=== PATIENT | male | born 1945 | race Caucasian/White ===

== ENCOUNTER 2020-09-08 07:14 | Day surgery (SDC) | payer OTHER ==
[2020-09-05 10:04] LABS: Absolute Lymphocytes (CBC) 1.6 K/uL (0.7-4.9); Basophils % 0.5 % (0-1.3); Lymphocytes % 24.1 % (15.3-44.8); MPV 8.3 fL (7.6-11.3); RBC Red Blood Cell Count 4.24 M/uL (4.33-5.43)
[2020-09-05 10:14] LABS: Potassium 4.6 mmol/L (3.5-5.1)
[2020-09-05 10:40] LABS: Protime INR 0.91
--- NOTE | 2020-09-05 11:05 | RAD REPORT ---
EXAM DESCRIPTION: August Gomez And Christoph (2 Views)09/05/2020 10:03 am CLINICAL HISTORY: Preop for coronary catheterization COMPARISON: 2016 FINDINGS: Bilateral calcified pleural plaques unchanged. Lungs appear clear of acute infiltrate. Lungs are mildly hyperaerated. Heart is normal size IMPRESSION: No acute abnormality is displayed
[2020-09-08] MEDS ORDERED: NA CHLORIDE 0.9% 500 ML ONE (08:11)
[2020-09-08] MEDS ORDERED: FENTANYL CITR 100 MCG/2 ML ONE (08:14)
[2020-09-08] MEDS ORDERED: MIDAZOLAM HCL 2 MG/2 ML INJ ONE ×2 (08:14→08:47)
[2020-09-08] MEDS ORDERED: ATROPINE SULF 1 MG/10 ML SYR IV ONE (08:15)
[2020-09-08] MEDS ORDERED: NA CHLORIDE 0.9% 0 ML ONE (08:15)
[2020-09-08] MEDS ORDERED: NITROGLYCERIN 100 MCG/ML SYR (for cath lab use only) IV ONE (08:15)
[2020-09-08] MEDS ORDERED: HEPA 1000U/500MLS 1,000 UNIT/500 ML BAG IV ONE (08:15)
[2020-09-08] MEDS ORDERED: NITROGLYCERIN/D5W 0 MG/0 ML BTL IV ONE (08:15)
--- NOTE | 2020-09-08 10:15 | OP ---
Surgeon: Renny Stephen MD Senior [employer] Specialist: Mr. Fran Mitchell. Procedure Performed: Admitted as an outpatient on 09/08/2020 for left heart catheterization, selecti ve coronary arteriogram, left ventriculogram. Indication: CAD, aortic stenosis, chest pain, abnormal stress test. Procedure In Detail: Mr. Gilmore was prepped and draped in the routine sterile fashion. Given Versed and fentanyl for sedation. A 6-[place] sheath introduced in the right common femoral artery successfu lly. Angiography there was normal. Angio-Seal was used to close the case. Jamse catheter left an d right were used to the coronary artery. He had a dominant RCA, which was normal. His circumflex w as normal. It was nondominant. His LAD had a 40% proximal and 40% mid LAD stenosis with some mild d iagonal disease as well. The patient was hypertensive throughout the procedure. A pigtail catheter was introduced and a very calcified aortic valve was found to have a 20 mm gradient consistent with m ild aortic stenosis. His end-diastolic pressure was 8 mmHg in the left ventricle. His ejection frac tion was 65% to 69%. The patient did not have any complication. He tolerated the procedure well. Postoperative Diagnoses: Mild aortic stenosis, moderate coronary artery disease. Estimated Blood Loss: 5 mL. Anesthesia: Total conscious sedation 45 minutes. Plan: For medical therapy. Increase statin dose, put him on aspirin. Consider low-dose beta-blocke r. The patient will remain in the hospital for 2 hours after bedrest and I will see him in the office in 2 weeks. GORGE/KEELYL Voice ID: [id number] Report ID: [id number]
[2020-09-08 10:28] VITALS: BP 173/56; TEMP 97.1; O2SAT 96
== END 2020-09-08 10:50 | disposition home or self-care (01) ==
LOC: CCL 07:14
DX: I25.10 Atherosclerotic heart disease of native coronary artery without angina pectoris (principal); I35.0 Nonrheumatic aortic (valve) stenosis; I10 Essential (primary) hypertension
CPT/HCPCS: 85025; 80048; 36415; 85610; 85730; 71046; 93458; C1893; C1760; J2250 ×2; J3010; J7040; J1644; J0583

== ENCOUNTER 2023-03-22 08:43 | Day surgery (SDC) | payer OTHER ==
--- NOTE | 2023-03-21 10:41 | RAD REPORT ---
EXAM DESCRIPTION: [facility] (2 Views)03/21/2023 10:29 am CLINICAL HISTORY: PREPROCEDURE SCREENING. Hypertension COMPARISON: Chest Pa And Lat (2 Views) dated 09/05/2020; Chest Pa And Lat (2 Views) dated 01/02/2016; CHEST PA AND LAT 2 VIEW dated 01/27/2015; CHEST SINGLE VIEW dated 05/24/2014 TECHNIQUE: Portable AP view of the chest. FINDINGS: The lungs are clear. Stable burden of calcific plaque. No pneumothorax or effusion. The ca rdiomediastinal contours are unremarkable. IMPRESSION: No acute cardiopulmonary process.
[2023-03-21 10:45] LABS: Absolute Lymphocytes (CBC) 1.6 K/uL (0.7-4.9); Hematocrit 36.2 % (39.6-49.0); Lymphocytes % 25.6 % (15.3-44.8); MPV 8.3 fL (7.6-11.3); Platelets 223 thou/uL (152-406); RBC Red Blood Cell Count 3.89 M/uL (4.33-5.43)
[2023-03-21 11:12] LABS: Potassium 4.4 mEq/L (3.5-5.1); Protime INR 0.94
--- NOTE | 2023-03-21 13:32 | EKG ---
Test Date: 2023-03-21 Test Time: 11:14:30 Reeling Operator: MILEY MEASUREMENT RESULTS: Intervals: Rate: 51 NV: 170 QRSD: 130 QT: 442 QTc: 407 [place]: P: 61 NV: 170 QRS: -10 T: 20 INTERPRETIVE STATEMENTS: Sinus bradycardia Nonspecific intraventricular block Abnormal ECG Compared to ECG 01/02/2016 10:48:42 Sinus rhythm no longer present Left-axis deviation no longer present Left ventricular hypertrophy no longer present Electronically Signed On 03-21-23 13:31:53 TICKET PRINTER by Dillon Santana
[2023-03-22] MEDS ORDERED: NA CHLORIDE 0.9% 500 ML ONE (09:09)
[2023-03-22] MEDS ORDERED: LIDOCAINE 1% 20 ML MDV ONE (10:11)
[2023-03-22] MEDS ORDERED: FENTANYL CITR 100 MCG/2 ML ONE (10:11)
[2023-03-22] MEDS ORDERED: VERAPAMIL HCL 10 MG/4 ML VIAL IV ONE (10:11)
[2023-03-22] MEDS ORDERED: HEPA 1000U/500MLS 1,000 UNIT/500 ML BAG IV ONE (10:11)
[2023-03-22] MEDS ORDERED: MIDAZOLAM HCL 2 MG/2 ML INJ ONE (10:12)
[2023-03-22] MEDS ORDERED: HEPARIN 5000 UNIT/ML 1 ML VIAL ONE (10:12)
[2023-03-22] MEDS ORDERED: TICAGRELOR 90 MG TABLET PO ONE (10:12)
[2023-03-22] MEDS ORDERED: ATROPINE SULF 1 MG/10 ML SYR IV ONE (10:12)
[2023-03-22] MEDS ORDERED: HEPARIN 10,000 UNIT/10 ML VIAL IV ONE (10:13)
[2023-03-22] MEDS ORDERED: CLOPIDOGREL 75 MG TABLET ONE (10:13)
[2023-03-22] MEDS ORDERED: ASPIRIN 325 MG TAB ONE (10:13)
[2023-03-22] MEDS ORDERED: NITROGLYCERIN/D5W 25 MG/250 ML BTL IV ONE (10:25)
[2023-03-22] MEDS ORDERED: REGADENOSON 0.4 MG/5 ML SYR IV ONE (11:11)
[2023-03-22 14:23] VITALS: BP 140/48; O2SAT 100
--- NOTE | 2023-03-22 18:47 | OP ---
Date of Procedure: 03/22/2023 Surgeon: HOWARD BELLO Procedure Performed: 1.Coronary angiogram. 2.FFR of mid LAD moderate stenosis and significant value of 0.87. Indication: Aortic valve stenosis. Access: Right radial artery 6-[place], closed with TR band. Complications: None. Bleeding: Less than 20 mL. Anesthesia: Total sedation time was 50 minutes. I used fentanyl and Versed. Description Of Procedure: After risks, benefits, alternatives were explained, the patient agreed to proceed and signed informed consent. The patient was brought into cardiac catheterization laboratory , prepped and draped in usual sterile fashion. Then, I accessed right radial artery using pediatric micropuncture kit, placed 6-[place] slender sheath and took 5-[place] 4 catheter into the aortic root, engaged left main and took standard views and then the RCA, took standard views, then exchanged for 6-[place] EBU 3 guide and engaged the left main and gave systemic heparin to assure ACT level abo ve 250 and took FFR PressureWire into the aortic root, pressures were equalized, and then the wire wa s advanced past the area of mid LAD stenosis and FFR was obtained using the scan, it was 0.87, signif icant, and then pullback showed no drift. Final angiogram after pulling the wire was satisfactory an d removed the guide and sheath. Placed TR band with good hemostasis. Findings: 1.Left main: Large and normal. 2.LAD: Ostial to proximal 40% to 50% stenosis, mid 50% stenosis, negative FFR of 0.87. Rest of the LAD is normal. Normal diagonal branches. 3.Left circumflex is normal. Normal OM branch. 4.RCA has ostial 80% stenosis, heavily calcified. Conclusion: 1.Severe ostial RCA stenosis, heavily calcified. 2.Moderate coronary artery disease elsewhere. Recommendation: 1.PCI of ostial RCA with shockwave at [place]. 2.To proceed with TAVR after PCI of RCA. SR/MODL Voice ID: [id number] Report ID: [id number]
== END 2023-03-22 14:27 | disposition home or self-care (01) ==
LOC: CCL 08:43
PROVIDERS: ATTEND Internal Medicine
DX: I35.0 Nonrheumatic aortic (valve) stenosis (principal); I25.10 Atherosclerotic heart disease of native coronary artery without angina pectoris; I34.0 Nonrheumatic mitral (valve) insufficiency; I65.23 Occlusion and stenosis of bilateral carotid arteries; I10 Essential (primary) hypertension; E78.5 Hyperlipidemia, unspecified; Z79.82 Long term (current) use of aspirin; Z79.899 Other long term (current) drug therapy; Z82.3 Family history of stroke
CPT/HCPCS: 93005; 85025; 80048; 36415; 85610; 85730; 71046; 93454; 76937; 93571; C1893; Q9966; J1644; J2785; J2001; J2250; J3010; J7040; C1769; 99152; 99153; J0461

== ENCOUNTER 2024-02-13 11:30 | Day surgery (SDC) | payer OTHER ==
[2024-02-10 14:15] LABS: Absolute Eosinophils 0.5 K/uL (0-0.5); Absolute Lymphocytes (CBC) 1.3 K/uL (0.7-4.9); Absolute Monocytes 0.7 K/uL (0.1-1.3); Absolute Neutrophil 4.3 K/uL (1.8-8.0); Basophils % 0.7 % (0-1.3); Eosinophils % 7.1 % (0-4.4); Hematocrit 36.9 % (39.6-49.0); Hemoglobin 12.3 g/dL (13.6-17.9); Lymphocytes % 19.3 % (15.3-44.8); MCH 31.1 pg (27.0-35.0); MCHC 33.4 g/dL (32.0-36.0); MCV 92.9 fL (80-100); MPV 8.4 fL (7.6-11.3); Monocytes % 10.4 % (3.3-12.3); Neutrophils % 62.5 % (41.7-73.7); Nucleated Red Blood Cells % 0.1 % (0-0); Platelets 230 thou/uL (152-406); RBC Red Blood Cell Count 3.98 M/uL (4.33-5.43); Red Cell Distribution Width 14.4 % (12.1-15.2)
[2024-02-10 14:22] LABS: PT Prothrombin Time 11.1 SECONDS (9.4-12.5); PTT, Activated Partial Thromb 30.1 SECONDS (24.3-36.9); Protime INR 0.99
--- NOTE | 2024-02-10 14:27 | RAD REPORT ---
Procedure: Chest Pa And Lat (2 Views) HISTORY: Preop for cardiac catheterization COMPARISON: March 2023 FINDINGS: The lungs appear clear of acute infiltrate. No significant pleural effusion noted. Calcified pleural plaques unchanged. Aortic stent present. The heart is mildly enlarged.. IMPRESSION: No acute abnormality is displayed.
[2024-02-13] MEDS ORDERED: NA CHLORIDE 0.9% 500 ML ONE (11:36)
[2024-02-13] MEDS ORDERED: HEPA 1000U/500MLS 2,000 UNIT/1,000 ML BAG IV ONE (12:09)
[2024-02-13] MEDS ORDERED: HEPARIN 10,000 UNIT/10 ML VIAL IV ONE (12:09)
[2024-02-13] MEDS ORDERED: LIDOCAINE 1% 20 ML MDV ONE (12:09)
[2024-02-13] MEDS ORDERED: CLOPIDOGREL 75 MG TABLET ONE (12:10)
[2024-02-13] MEDS ORDERED: MIDAZOLAM HCL 2 MG/2 ML INJ ONE (12:10)
[2024-02-13] MEDS ORDERED: VERAPAMIL HCL 10 MG/4 ML VIAL IV ONE (12:10)
[2024-02-13] MEDS ORDERED: ATROPINE SULF 1 MG/10 ML SYR IV ONE (12:10)
[2024-02-13] MEDS ORDERED: TICAGRELOR 90 MG TABLET PO ONE (12:11)
[2024-02-13] MEDS ORDERED: ASPIRIN 325 MG TAB ONE (12:11)
[2024-02-13] MEDS ORDERED: HEPARIN 5000 UNIT/ML 1 ML VIAL ONE (12:11)
[2024-02-13] MEDS ORDERED: FENTANYL CITR 100 MCG/2 ML ONE (12:11)
[2024-02-13] MEDS ORDERED: METOPROLOL XL 25 MG TAB PO ONE (13:30)
[2024-02-13 15:38] VITALS: BP 127/56; O2SAT 99
--- NOTE | 2024-02-13 20:49 | OP ---
Date of Procedure: 02/13/2024 Surgeon: HOWARD BELLO Procedures Performed: 1.Selective coronary angiogram. 2.Left heart catheterization. Indication: Chest pain suggestive of unstable angina. Access: Right radial artery 6-B[place]hi, closed with TR band. Complications: None. Bleedin mL. Anesthesia: Total sedation time was 1 hour, used fentanyl and Versed. Description Of Procedure: After risks, benefits, and alternatives were explained, the patient agreed to procedure, signed informed consent. The [facility], prepped and draped in usual sterile fashion. Then, I accessed right radial artery using [place] ic micropuncture kit, placed a 6-B[place] slender sheath and took 5-[place] 4 catheter into the ao rtic root over J-wire across the aortic valve, measured the LVEDP. Pullback did not record any gradi ent. Then, engaged the RCA, took standard views and then left main, took standard views and then rem bertha the catheter and the sheath, placed TR band with good hemostasis. Findings: 1.Left main is normal. 2.LAD has proximal 40% to 50% stenosis, mid 50% stenosis. Rest of the LAD with luminal regularities unchanged from previous angiogram a year ago. 3.Left circumflex is normal. OM branch has ostial 30% stenosis. 4.RCA has widely patent ostial RCA stent. 5.Elevated LVEDP at 70 mmHg. Conclusion: Moderate coronary artery disease with patent RCA stents. Recommendation: Medical management. /KEELYL Voice ID: [id number] Report ID: [id number]
== END 2024-02-13 15:20 | disposition home or self-care (01) ==
LOC: CCL 11:30
PROVIDERS: ATTEND Internal Medicine
DX: I25.110 Atherosclerotic heart disease of native coronary artery with unstable angina pectoris (principal); I35.0 Nonrheumatic aortic (valve) stenosis; I73.9 Peripheral vascular disease, unspecified; I10 Essential (primary) hypertension; Z95.5 Presence of coronary angioplasty implant and graft; Z95.2 Presence of prosthetic heart valve; Z79.82 Long term (current) use of aspirin; Z79.899 Other long term (current) drug therapy; Z82.3 Family history of stroke
CPT/HCPCS: 85025; 80048; 36415; 85610; 85730; 71046; 93458; 76937; C1893; Q9966; J1644; J2003; J2250; J3010; J7040; 99152; 99153; J0461